=== PATIENT | female | born 1970 ===

== ENCOUNTER 2018-11-26 12:23 | Emergency (ER) | payer OTHER ==
--- NOTE | 2018-11-26 14:06 | ED PDOC ---
HPI: General Adult Time Seen by Provider: 11/26/18 13:05 Chief Complaint (Nursing): Flu-like Symptoms Chief Complaint (Provider): fever/ throat pain History Per: Patient History/Exam Limitations: no limitations Onset/Duration Of Symptoms: Days Current Symptoms Are (Timing): Still Present Severity: Moderate Pain Scale Rating Of: 6 Additional History Per: Patient Additional Complaint(s): 48 y/o female with no medical history presents to the ED c/o fever, bodyaches and throat pain since Tuesday. Patient states she has dry cough with one episode of vomiting today. Patient reports she took Tylenol prior to arrival. Patient denies chest pain, sob, diarrhea. Past Medical History Vital Signs: Last Vital Signs Temp 102.3 F H 11/26/18 12:29 Pulse 111 H 11/26/18 12:29 Resp 18 11/26/18 12:29 BP 115/76 11/26/18 12:29 Pulse Ox 96 11/26/18 12:29 TRAVIS Report Viewed: No - Medical History PMH: No Chronic Diseases - Surgical History Surgical History: No Surg Hx - Family History Family History: States: Unknown Family Hx - Living Arrangements Living Arrangements: With Family - Social History Alcohol: None Drugs: Denies - Home Medications Home Medications: Ambulatory Orders Medication Instructions Recorded Ondansetron ODT [Zofran ODT] 4 mg PO Q6H PRN #12 odt 11/26/18 Oseltamivir Cap [Tamiflu] 75 mg PO BID #9 cap 11/26/18 - Allergies Allergies/Adverse Reactions: Allergies Allergy/AdvReac Type Severity Reaction Status Date / Time Penicillins Allergy RASH Verified 11/26/18 12:33 Review of Systems ROS Statement: Except As Marked, All Systems Reviewed And Found Negative Constitutional: Positive for: Fever, Chills, Malaise ENT: Positive for: Ear Pain (pressure bilat ), Throat Pain Cardiovascular: Negative for: Chest Pain, Palpitations Respiratory: Positive for: Cough. Negative for: Shortness of Breath, SOB with Exertion, Wheezing Gastrointestinal: Positive for: Nausea, Vomiting. Negative for: Abdominal Pain Genitourinary Female: Negative for: Dysuria Skin: Negative for: Rash Physical Exam - Reviewed Nursing Documentation Reviewed: Yes Vital Signs Reviewed: Yes - Physical Exam Appears: Positive for: Well, Non-toxic, No Acute Distress Head Exam: Positive for: ATRAUMATIC, NORMAL INSPECTION, NORMOCEPHALIC Skin: Positive for: Normal Color, Warm, DRY Eye Exam: Positive for: EOMI, Normal appearance, PERRL ENT: Positive for: Normal ENT Inspection, Pharynx Is (erythematous ), Pharyngeal Erythema. Negative for: Sinus Pain/Drainage, Nasal Congestion, Tonsillar Exudate, Tonsillar Swelling Neck: Positive for: Normal, Painless ROM, Supple Cardiovascular/Chest: Positive for: Regular Rate, Rhythm Respiratory: Positive for: CNT, Normal Breath Sounds Gastrointestinal/Abdominal: Positive for: Normal Exam, Soft Back: Positive for: Normal Inspection. Negative for: L CVA Tenderness, R CVA Tenderness Extremity: Positive for: Normal ROM Neurological/Psych: Positive for: Awake, Alert, Normal Tone, Oriented - ECG O2 Sat by Pulse Oximetry: 96 Medical Decision Making Medical Decision Making: Motrin 600mg PO Rapid Strep Influenza 1400: Patient is Influenza A positive. Clinical findings discussed with patient. RX given for Tamiflu, first dose given in ED and Zofran 4mg ODT PRN. Patient educated to maintain hydrated, Tylenol and Motrin for fever and bodyaches, note for work, follow up with PMD in 1 week. Patient states understanding and agrees with plan. Disposition - Clinical Impression Clinical Impression: Influenza A - Patient ED Disposition Is Patient to be Admitted: No Counseled Patient/Family Regarding: Diagnosis, Need For Followup, Rx Given - Disposition Disposition: Routine/Home Disposition Time: 14:00 Condition: STABLE Prescriptions: Ondansetron ODT [Zofran ODT] 4 mg PO Q6H PRN #12 odt PRN Reason: Nausea/Vomiting Oseltamivir Cap [Tamiflu] 75 mg PO BID #9 cap Instructions: Flu, Adult (DC) Forms: [facility] ED School/Work Excuse - POA Present On Arrival: None
[2018-11-26 14:10] VITALS: PULSE 112; RESP 16
[2018-11-26 14:13] VITALS: O2SAT 96
[2018-11-26 14:20] VITALS: BP 125/75; TEMP 100.8
== END 2018-11-26 15:23 | disposition home or self-care (01) ==
LOC: H.ER 12:23
DX: J11.1 Influenza due to unidentified influenza virus with other respiratory manifestations (principal); Z88.0 Allergy status to penicillin; Z79.899 Other long term (current) drug therapy